=== PATIENT | female | born 1965 | race Caucasian/White ===

== ENCOUNTER 2016-10-16 10:15 | Observation (INO) | payer OTHER ==
[2016-10-16] VITALS (12 sets, daily range): BP systolic 116–156; BP diastolic 79–94; PULSE 71–93; RESP 16–20; TEMP 96.7–98.4; O2SAT 96–99
[~2016-10-16 10:15] MED LIST: IBUP-238 PO
[2016-10-16] MEDS ORDERED: ASPIRIN 325 MG TAB PO ONE (10:30)
[2016-10-16] MEDS ORDERED: SODIUM CHLORID 0.9% 500 ML INJ 500 ML IV ONE (10:30)
[2016-10-16] MEDS ORDERED: SODIUM CHLORIDE 0.9% FLUSH 10 ML FLUSH IVF PRN (10:30)
[2016-10-16] MEDS ORDERED: LEVO100T5 PO (10:32)
[2016-10-16] MEDS ORDERED: ROSU20 PO (10:32)
--- NOTE | 2016-10-16 10:33 | PD ---
HPI Chief Complaint: Dizziness Time Seen by Provider: 10:24 Travel History International Travel<30 days: No Contact w/Intl Traveler<30days: No Traveled to known affect area: No History of Present Illness HPI 51-year-old female with history of hypothyroidism, high cholesterol, presents to the ER today because she states that she has had several days' history of intermittent left-sided chest pains or radiation to the left shoulder, neck pains, nausea, and also woke up this morning with dizziness. She states that the chest pains and neck pains have subsided currently. She is mildly lightheaded currently. She denies any coughing, fevers, shortness of breath, or any other symptoms. She denies any exacerbating or alleviating factors. She has had similar chest pains evaluated about 4 years ago by cardiology with stress testing which was negative. Modifying Factors: None Associated Signs & Symptoms: Chest pains, neck pains, nausea, dizziness Risk Factors: High cholesterol PFSH Past Medical History Heart Rhythm Problems: No Cancer: No Cardiovascular Problems: Yes (MURMUR) High Cholesterol: Yes Congestive Heart Failure: No Diabetes: No Diminished Hearing: No Endocrine: No Genitourinary: No Hepatitis: No Hiatal Hernia: No Hypertension: No Immune Disorder: No Musculoskeletal: Yes (NECK PAIN/ BACK ISSUES) Neurologic: No Psychiatric: Yes (ANXIETY) Reproductive: No Respiratory: No Immunizations Current: No Thyroid Disease: Yes (HYPOTHYROID) Influenza Vaccination: Yes ?: Not Tubal Ligation: Yes Past Surgical History AICD: No Coronary Artery Bypass Graft: No Genitourinary Surgery: Yes (BLADDER SUSP.) Hysterectomy: Yes (PARTIAL) Joint Replacement: No Oral Surgery: Yes (TMJ SURG) Pacemaker: No Other Surgery: Yes (SKIN CANCER REMOVED FROM LEFT HAND) Social History Alcohol Use: No Tobacco Use: No Substance Use: No Allergies-Medications (Allergen,Severity, Reaction): Coded Allergies: Phenergan (Unverified Allergy, Severe, CARDIAC ARREST, 10/16/16) WITH IV PHENERGAN ONLY Reported Meds & Prescriptions Reported Meds & Active Scripts Active Reported Levothyroxine (Levothyroxine Sodium) 100 Mcg Tab 100 Mcg PO DAILY Crestor (Rosuvastatin Calcium) 20 Mg Tab 20 Mg PO DAILY Review of Systems Except as stated in HPI: all other systems reviewed are Neg Physical Exam Narrative GENERAL: Middle age white female patient currently not in acute distress. She is awake, alert, oriented 3. SKIN: Warm and dry. HEAD: Atraumatic. Normocephalic. EYES: Pupils equal and round. No scleral icterus. No injection or drainage. ENT: No nasal bleeding or discharge. Mucous membranes pink and moist. NECK: Trachea midline. No JVD. CARDIOVASCULAR: Regular rate and rhythm. No murmur appreciated. Pulses are present and equal bilaterally. RESPIRATORY: No accessory muscle use. Clear to auscultation. Breath sounds equal bilaterally. GASTROINTESTINAL: Abdomen soft, non-tender, nondistended. Hepatic and splenic margins not palpable. MUSCULOSKELETAL: No obvious deformities. No clubbing. No cyanosis. No edema. NEUROLOGICAL: Awake and alert. No obvious cranial nerve deficits. Motor grossly within normal limits. Normal speech. PSYCHIATRIC: Appropriate mood and affect; insight and judgment normal. Data Data Last Documented VS Vital Signs Date Time Temp Pulse Resp B/P Pulse Ox O2 Delivery O2 Flow Rate FiO2 10/16/16 12:27 80 18 151/84 98 Room Air 10/16/16 10:25 98.4 Orders Electrocardiogram (10/16/16 10:28) Ckmb (Isoenzyme) Profile (10/16/16 10:28) Complete Blood Count With Diff (10/16/16 10:28) Comprehensive Metabolic Panel (10/16/16 10:28) Magnesium (Mg) (10/16/16 10:28) Prothrombin Time / Inr (Pt) (10/16/16 10:28) Act Partial Throm Time (Ptt) (10/16/16 10:28) Troponin I (10/16/16 10:28) Chest, Single Ap (10/16/16 10:28) Ecg Monitoring (10/16/16 10:28) Bilateral Bp Monitoring (10/16/16 10:28) Iv Access Insert/Monitor (10/16/16 10:28) Oximetry (10/16/16 10:28) Oxygen Administration (10/16/16 10:28) Aspirin (Aspirin) (10/16/16 10:30) Sodium Chloride 0.9% Flush (Ns Flush) (10/16/16 10:30) Sodium Chlorid 0.9% 500 Ml Inj (Ns 500 M (10/16/16 10:30) Thyroid Stimulating Hormone (10/16/16 10:28) Labs Laboratory Tests Test 10/16/16 10/16/16 10:35 11:40 White Blood Count 7.2 TH/MM3 Red Blood Count 4.86 MIL/MM3 Hemoglobin 14.1 GM/DL Hematocrit 41.0 % Mean Corpuscular Volume 84.5 FL Mean Corpuscular Hemoglobin 29.0 PG Mean Corpuscular Hemoglobin 34.4 % Concent Red Cell Distribution Width 12.6 % Platelet Count 314 TH/MM3 Mean Platelet Volume 7.5 FL Neutrophils (%) (Auto) 65.6 % Lymphocytes (%) (Auto) 25.3 % Monocytes (%) (Auto) 5.0 % Eosinophils (%) (Auto) 2.2 % Basophils (%) (Auto) 1.9 % Neutrophils # (Auto) 4.7 TH/MM3 Lymphocytes # (Auto) 1.8 TH/MM3 Monocytes # (Auto) 0.4 TH/MM3 Eosinophils # (Auto) 0.2 TH/MM3 Basophils # (Auto) 0.1 TH/MM3 CBC Comment DIFF FINAL Differential Comment Prothrombin Time 10.2 SEC Prothromb Time International 0.9 RATIO Ratio Activated Partial 22.7 SEC Thromboplast Time Sodium Level 139 MEQ/L Potassium Level 4.5 MEQ/L Chloride Level 106 MEQ/L Carbon Dioxide Level 24.4 MEQ/L Anion Gap 9 MEQ/L Blood Urea Nitrogen 15 MG/DL Creatinine 0.66 MG/DL Estimat Glomerular Filtration 95 ML/MIN Rate Random Glucose 88 MG/DL Calcium Level 9.0 MG/DL Magnesium Level 2.1 MG/DL Total Bilirubin 0.3 MG/DL Aspartate Amino Transf 19 U/L (AST/SGOT) Alanine Aminotransferase 20 U/L (ALT/SGPT) Alkaline Phosphatase 65 U/L Total Creatine Kinase 77 U/L Troponin I LESS THAN 0.02 NG/ML Total Protein 8.2 GM/DL Albumin 3.7 GM/DL Thyroid Stimulating Hormone 7.350 uIU/ML 3rd Gen [facility] Medical Decision Making Medical Screen Exam Complete: Yes Emergency Medical Condition: Yes Medical Record Reviewed: Yes Interpretation(s) EKG shows NSR, no ST elevation or depression, and no arrhythmias. No significant T-wave inversions. Laboratory Tests Test 10/16/16 10/16/16 10:35 11:40 Activated Partial 22.7 SEC Thromboplast Time (24.3-30.1) Troponin I LESS THAN 0.02 NG/ML (0.02-0.05) Thyroid Stimulating Hormone 7.350 uIU/ML 3rd Gen (0.358-3.740) Last 24 hours Impressions Chest X-Ray 10/16/16 1028 Signed Impressions: Service Date/Time: Tuesday, October 16, 2016 10:40 - CONCLUSION: No acute disease. Akila Ramey MD Differential Diagnosis Chest pains, dizziness, neck pains, nauseaACS versus dysrhythmias versus muscular skeletal Narrative Course EKG did not show significant dysrhythmias or significant ST elevations or depressions. Chest x-ray did not show any signs of acute processes. Lab work was negative for any significant metabolic issues or signs of dehydration or cardiac enzyme elevations. Patient had a negative stress test done 5 years ago. Case was discussed with Dr. Arciniega who is covering for Dr. Staley, who had done patient's stress test before, and he states that the patient should go to the chest pain center. Case is discussed with Dr. Selvin Marrero for admission. Diagnosis Primary Impression: CHEST PAIN, UNSPECIFIED Admitting Information Admitting Physician Requests: Admit Willis Chan MD Oct 16, 2016 10:33
--- NOTE | 2016-10-16 10:52 | RADHPO ---
EXAM DATE/TIME: 10/16/2016 10:40 [facility] COMPARISON: No previous studies available for comparison. INDICATIONS : Chest pain and dizziness. MEDICAL HISTORY : None. SURGICAL HISTORY : None. ENCOUNTER: Initial ACUITY: 2 days PAIN SCORE: 3/10 LOCATION: Bilateral chest FINDINGS: A single view of the chest demonstrates the lungs to be symmetrically aerated without evidence of mas s, infiltrate or effusion. The cardiomediastinal contours are unremarkable. Osseous structures are intact. Anterior cervical spine fusion hardware noted. CONCLUSION: No acute disease. Akila Ramey MD on October 16, 2016 at 10:50 Board Certified Radiologist. This report was verified electronically.
[2016-10-16 10:53] LABS: AUTOMATED NEUTROPHIL # 4.7 TH/MM3 (1.8-7.7); BASOPHIL # 0.1 TH/MM3 (0-0.2); BASOPHIL % 1.9 % (0.0-2.0); EOSINOPHIL # 0.2 TH/MM3 (0-0.4); EOSINOPHIL % 2.2 % (0.0-4.0); HEMO FLAGS DIFF FINAL; LYMPH % 25.3 % (9.0-44.0); LYMPHOCYTE # 1.8 TH/MM3 (1.0-4.8); MEAN CELL VOLUME 84.5 FL (80.0-100.0); MEAN CORPUSCULAR HGB CONC 34.4 % (32.0-36.0); NEUT % 65.6 % (16.0-70.0); PLATELET COUNT 314 TH/MM3 (150-450); RED BLOOD COUNT 4.86 MIL/MM3 (4.00-5.30); RED CELL DISTRIBUTION WIDTH 12.6 % (11.6-17.2); WHITE BLOOD COUNT 7.2 TH/MM3 (4.0-11.0)
[2016-10-16 10:55] LABS: APTT (PATIENT) 22.7 SEC (24.3-30.1); INTERNATIONAL NORMALIZED RATIO 0.9 RATIO; PROTHROMBIN TIME - PATIENT 10.2 SEC (9.8-11.6)
[2016-10-16 11:58] LABS: CHLORIDE 106 MEQ/L (98-107); POTASSIUM 4.5 MEQ/L (3.5-5.1); SODIUM (NA) 139 MEQ/L (136-145)
[2016-10-16 12:02] LABS: ANION GAP 9 MEQ/L (5-15); BICARBONATE 24.4 MEQ/L (21.0-32.0); BLOOD UREA NITROGEN 15 MG/DL (7-18); MAGNESIUM 2.1 MG/DL (1.5-2.5)
[2016-10-16 12:05] LABS: ALT (GPT) 20 U/L (10-53); AST (GOT) 19 U/L (15-37); GLOMERULAR FILTRATION RATE 95 ML/MIN (>89)
[2016-10-16 12:06] LABS: TOTAL BILIRUBIN ADULT 0.3 MG/DL (0.2-1.0)
[2016-10-16 12:08] LABS: ALKALINE PHOSPHATASE 65 U/L (45-117)
[2016-10-16 12:21] LABS: CREATINE KINASE 77 U/L (26-192)
[2016-10-16] MEDS ORDERED: ONDANSETRON HCL 4 MG/2 ML VIAL IV PRN (13:00)
[2016-10-16] MEDS ORDERED: NITROGLYCERIN 0.4 MG SL 25 TABS/BTL SL PRN (13:00)
[2016-10-16] MEDS ORDERED: MORPHINE SULFATE 4 MG/ML INJ IV PRN (13:00)
[2016-10-16] MEDS ORDERED: SODIUM CHLORIDE 0.9% FLUSH 10 ML FLUSH IV FLUSH PRN (13:00)
[2016-10-16] MEDS: HEPARIN SODIUM - SQ 10,000 UNITS/ML VIAL SQ SCH ×2 (13:27→20:59)
--- NOTE | 2016-10-16 14:07 | HHI.HP ---
HPI Service [facility] Primary Care Physician Tyree Serrano MD Admission Diagnosis chest pain Diagnoses: (1) Dizziness Diagnosis: Principal (2) Chest pain Diagnosis: Principal (3) HTN (hypertension) Diagnosis: Principal (4) Hypothyroidism Diagnosis: Principal Chief Complaint: "dizzy" Travel History International Travel<30 Days: No Contact w/Intl Traveler <30 Da: No Traveled to Known Affected Are: No History of Present Illness 51-year-old female with history of congenital heart murmur, hyperlipidemia, hypothyroidism, anxiety, and neck and back issues is admitted chest pain center. The patient states that she came in primarily for dizziness. She states she got up today and was "very very dizzy". She states it felt like the room was spinning and she was lightheaded and when she stood up she almost fell. She denies ever having this before. She states her blood pressure was also high with systolic in the 150s whereas normally she is hypotensive. She additionally states she has had chest pain over the left upper chest for the past 3 days. She states the pain lasts approximately 1 minute but also has radiation to the left upper arm and radiates to the back. She states it would hurt when she breathes. She states she has had chest pain once per week for the past 8 or 9 months. Denies anything making the pain better. She denies any diaphoresis, shortness of breath, or vomiting with the chest pain but does admit to feeling nauseous with it. The patient has not been compliant with her Synthroid. She had a treadmill stress test in 2011 which was negative for ischemia.She currently admits to headache, but denies receiving nitroglycerin in the ED. She denies any fevers or chills, cold or cough symptoms. Review of Systems Except as stated in HPI: all other systems reviewed are Neg Past Family Social History Past Medical History Congenital heart murmur Hyperlipidemia Hypothyroidism Anxiety Neck and back issues chronic globus sensation Cardiac arrest from Phenergan use Episode of severe hypoglycemia when hospitalized for procedure Past Surgical History Tubal ligation Bladder suspension 2 Partial hysterectomy TMJ surgery Skin cancer removed from left hand Disc surgery cervical spine Esophageal dilatation Reported Medications Levothyroxine (Levothyroxine Sodium) 100 Mcg Tab 100 Mcg PO DAILY Crestor (Rosuvastatin Calcium) 20 Mg Tab 20 Mg PO DAILY Allergies: Coded Allergies: Phenergan (Unverified Allergy, Severe, CARDIAC ARREST, 10/16/16) WITH IV PHENERGAN ONLY Family History Mother: NE in her 50s; hyperlipidemia. Father: Hyperlipidemia. Brother: Diabetes. Thyroid disease runs in the family. Social History Denies history of cigarette smoking. Denies alcohol use. Denies illicit drug use. Physical Exam Vital Signs Vital Signs Date Time Temp Pulse Resp B/P Pulse Ox O2 Delivery O2 Flow Rate FiO2 10/16/16 13:59 96.7 71 16 132/84 99 10/16/16 13:36 76 18 151/84 98 10/16/16 12:27 80 18 151/84 98 Room Air 10/16/16 11:23 75 18 139/91 97 Room Air 10/16/16 11:07 83 152/89 149/84 10/16/16 10:38 97 Room Air 10/16/16 10:38 98 Room Air 10/16/16 10:25 98.4 84 18 156/94 99 Physical Exam GENERAL: This is a pleasant well-nourished, well-developed patient, in no apparent distress. SKIN: No rashes, ecchymoses or lesions. Warm and dry. HEAD: Atraumatic. Normocephalic. EYES: No scleral icterus. No injection or drainage. NECK: Trachea midline. No carotid bruits bilaterally. CHEST: No reproducible chest wall tenderness. CARDIOVASCULAR: Regular rate and rhythm without murmurs, gallops, or rubs. RESPIRATORY: Clear to auscultation. Breath sounds equal bilaterally. No wheezes , rales, or rhonchi. GASTROINTESTINAL: Abdomen soft, non-tender, nondistended. No guarding. MUSCULOSKELETAL: No lower extremity edema. NEUROLOGICAL: Awake and alert. Motor grossly within normal limits. Normal speech. Laboratory Laboratory Tests Test 10/16/16 10/16/16 10:35 11:40 White Blood Count 7.2 Red Blood Count 4.86 Hemoglobin 14.1 Hematocrit 41.0 Mean Corpuscular Volume 84.5 Mean Corpuscular Hemoglobin 29.0 Mean Corpuscular Hemoglobin 34.4 Concent Red Cell Distribution Width 12.6 Platelet Count 314 Mean Platelet Volume 7.5 Neutrophils (%) (Auto) 65.6 Lymphocytes (%) (Auto) 25.3 Monocytes (%) (Auto) 5.0 Eosinophils (%) (Auto) 2.2 Basophils (%) (Auto) 1.9 Neutrophils # (Auto) 4.7 Lymphocytes # (Auto) 1.8 Monocytes # (Auto) 0.4 Eosinophils # (Auto) 0.2 Basophils # (Auto) 0.1 CBC Comment DIFF FINAL Differential Comment Prothrombin Time 10.2 Prothromb Time International 0.9 Ratio Activated Partial 22.7 Thromboplast Time Sodium Level 139 Potassium Level 4.5 Chloride Level 106 Carbon Dioxide Level 24.4 Anion Gap 9 Blood Urea Nitrogen 15 Creatinine 0.66 Estimat Glomerular Filtration 95 Rate Random Glucose 88 Calcium Level 9.0 Magnesium Level 2.1 Total Bilirubin 0.3 Aspartate Amino Transf 19 (AST/SGOT) Alanine Aminotransferase 20 (ALT/SGPT) Alkaline Phosphatase 65 Total Creatine Kinase 77 Troponin I LESS THAN 0.02 Total Protein 8.2 Albumin 3.7 Thyroid Stimulating Hormone 7.350 3rd Gen Result Diagram: 10/16/16 1035 10/16/16 1140 Imaging Last Impressions Chest X-Ray 10/16/16 1028 Signed Impressions: Service Date/Time: Sunday, October 16, 2016 10:40 - CONCLUSION: No acute disease. Akila Ramey MD Assessment and Plan Assessment and Plan 51-year-old female with: Dizziness: Acute started this morning, room spinning with associated lightheadedness. Likely attributed to not taking her Synthroid as evidenced by TSH elevation. Patient appears well on exam. No hypotension evident. CBC unremarkable. -Monitor clinically. If recurs will consider CT imaging of the head. -Currently has a LOVE, appears mild, Tylenol as needed. Chest pain: Left upper chest reading to the arm and back. Started 8-9 months ago. Troponin less than 0.02. EKGs 2 personally interpreted with normal sinus rhythm and nonspecific septal T wave inversion. Chest x-ray personally interpreted with no acute disease. -Serial EKGs and enzymes -325 mg daily aspirin -Nitro/[place]/morphine prn pain -Telemetry -Provided ACS ruled out, patient will undergo nuclear stress test in the morning. Hypertension: Patient does not have a history of hypertension stating she is normally hypotensive. BP on arrival was 156/94 persistent until this afternoon , improved to 132/84. -Clonidine as needed SBP >160 DBP > 90 Hypothyroidism: TSH elevated at 7.350. Patient has not been compliant with taking her Synthroid regularly. -Continue Synthroid. HLD: Continue Crestor. DVT prevention: SCDs, heparin sq. Written by Qian Velez PA-C acting as scribe for Dr. Magana on 10/16/16 at ~1400. All or portions of this note were transcribed by scribe Qian Velez PA-C. I , Dr. Xavier Magana personally performed the history, physical exam, and medical decision making; and confirmed the accuracy of the information in the transcribed note. Authenticated by Dr. Xavier Magana on 10/16/16 at 15:59. Discussed Condition With ED physician, patient Qian Velez Oct 16, 2016 14:07 Xavier Magana MD Oct 16, 2016 15:59
[2016-10-16] MEDS ORDERED: cloNIDine HCL 0.1 MG TAB PO PRN (15:45)
[2016-10-16 15:46] LABS: CREATINE KINASE 47 U/L (26-192)
[2016-10-16 19:52] LABS: CREATINE KINASE 48 U/L (26-192)
[2016-10-16] MEDS: ACETAMINOPHEN 500 MG CPLT PO PRN (20:58)
[2016-10-16] MEDS: SODIUM CHLORIDE 0.9% FLUSH 10 ML FLUSH IV FLUSH SCH (20:59)
[2016-10-16] MEDS ORDERED: NON-FORMULARY DRUG (Rosuvastatin (Crestor) 20 MG) PO SCH (21:00)
[2016-10-16] MEDS ORDERED: ATORVASTATIN 40 MG TAB PO SCH (21:00)
[2016-10-17 00:49] VITALS: BP 110/69; PULSE 72; RESP 20; TEMP 97.9; O2SAT 98
[2016-10-17] MEDS: HEPARIN SODIUM - SQ 10,000 UNITS/ML VIAL SQ SCH ×2 (05:00→11:19)
[2016-10-17 05:08] VITALS: BP 113/76; PULSE 72; RESP 14; TEMP 96.3; O2SAT 96
[2016-10-17] MEDS ORDERED: LEVOTHYROXINE SODIUM 100 MCG TAB PO SCH (06:00)
[2016-10-17 08:00] VITALS: BP 140/92; PULSE 81; RESP 20; TEMP 96.2; O2SAT 96; O2SAT 97
[2016-10-17] MEDS: SODIUM CHLORIDE 0.9% FLUSH 10 ML FLUSH IV FLUSH SCH (08:42)
[2016-10-17] MEDS ORDERED: ASPIRIN 325 MG TAB PO SCH (09:00)
[2016-10-17] MEDS ORDERED: PANTOPRAZOLE SOD 40 MG DELAYED RELEASE TAB PO SCH (09:00)
[2016-10-17] MEDS ORDERED: REGADENOSON INJ 0.4 MG/5 ML SYR IV ONE (10:34)
--- NOTE | 2016-10-17 11:48 | HHI.PR ---
Subjective Remarks Follow-up for dizziness and chest pain. She states she had dizziness when coming off of the table after the stress test but denies dizziness otherwise. She admits to headache after the stress test. She does states she had 1 episode of sharp pain in the chest earlier which lasted only 30 seconds. She denies any current chest pain. Denies any shortness of breath. Objective Vitals Vital Signs Date Time Temp Pulse Resp B/P Pulse Ox O2 Delivery O2 Flow Rate FiO2 10/17/16 08:00 96.2 81 20 140/92 97 10/17/16 05:08 96.3 72 14 113/76 96 10/17/16 00:49 97.9 72 20 110/69 98 10/16/16 22:13 18 10/16/16 21:16 97 21 10/16/16 20:34 97.3 76 20 116/79 97 10/16/16 20:00 93 10/16/16 17:18 96 21 10/16/16 16:00 97.3 88 16 122/85 96 10/16/16 13:59 96.7 71 16 132/84 99 10/16/16 13:36 76 18 151/84 98 10/16/16 12:27 80 18 151/84 98 Room Air I/O 10/16/16 10/16/16 10/16/16 10/17/16 10/17/16 10/17/16 07:00 15:00 23:00 07:00 15:00 23:00 Intake Total 500 ml 480 ml Balance 500 ml 480 ml Intake Oral 480 ml IV Total 500 ml # Voids 1 3 2 Result Diagram: 10/16/16 1035 10/16/16 1140 Imaging Last Impressions Myocardial Perfusion Scan Nuc Med 10/17/16 0600 Signed Impressions: Service Date/Time: Monday, October 17, 2016 10:45 - CONCLUSION: Negative exam. RISK CATEGORY: Low risk. Akila Ramey MD Chest X-Ray 10/16/16 1028 Signed Impressions: Service Date/Time: Sunday, October 16, 2016 10:40 - CONCLUSION: No acute disease. Akila Ramey MD Objective Remarks GENERAL: Well-nourished, well-developed patient in no apparent distress. SKIN: Warm and dry. HEAD: Atraumatic. Normocephalic. CARDIOVASCULAR: Regular rate and rhythm. RESPIRATORY: No accessory muscle use. Clear to auscultation. Breath sounds equal bilaterally. GASTROINTESTINAL: Abdomen soft, non-tender, nondistended. MUSCULOSKELETAL: No lower extremity edema bilaterally. NEUROLOGICAL: Awake and alert. Motor grossly within normal limits. Normal speech. PSYCHIATRIC: Appropriate mood and affect; insight and judgment normal. Urinary Catheter: No Vascular Central Line Catheter: No A/P Problem List: (1) Dizziness ICD Code: R42 Status: Acute (2) Chest pain ICD Code: R07.9 Status: Acute (3) HTN (hypertension) ICD Code: I10 Status: Acute (4) Hypothyroidism ICD Code: E03.9 Status: Acute Assessment and Plan 51-year-old female with: Dizziness:Spinning with associated lightheadedness. Likely attributed to not taking her Synthroid as evidenced by TSH elevation. Patient appears well on exam. No hypotension evident. CBC unremarkable. -Only recurrence was dizziness when getting off of table after stress test. Chest pain: Left upper chest radiating to the arm and back. Started 8-9 months ago. Troponin x 3 less than 0.02. EKGs 3 personally interpreted with normal sinus rhythm; EKG #1 and 2 with nonspecific septal T wave inversion. Chest x- with no acute disease. -325 mg daily aspirin -Nitro/morphine prn pain -Telemetry -Nuclear stress test to be performed. Hypertension: Patient does not have a history of hypertension stating she is normally hypotensive. BP on arrival was 156/94 but improved yesterday afternoon without intervention. BP became elevated at 160/106 this afternoon likely due to Lexiscan. Clonidine was administered. -Clonidine as needed SBP >160 DBP > 90 Hypothyroidism: TSH elevated at 7.350. Patient has not been compliant with taking her Synthroid regularly. -Continue Synthroid. HLD: Continue Crestor. DVT prevention: SCDs, heparin sq. Written by Qian Velez PA-C acting as scribe for Dr. Magana on 10/17/16 at 1150. Myocardial perfusion scan negative. EF 68%. Telemetry reviewed with no significant abnormalities noted. Patient's blood pressure elevated again this afternoon likely due to the Lexiscan, but she also came in with hypertension and it was mildly elevated in the morning prior to test. She states that is the reason she came to the hospital. The patient will be started on Lisinopril 5 mg by mouth daily. She is advised to keep a log of blood pressures/symptoms and report to her primary care physician. Discharge disposition: Home in stable condition Diet: Heart healthy Medications: Resume home medications. Prescription for Lisinopril 5 mg by mouth daily. Activity: Regular. No driving for 24 hours. Follow up: PCP in 1 week. Qian Velez Oct 17, 2016 11:48
[2016-10-17 12:00] VITALS: BP 160/106; PULSE 86; RESP 20; TEMP 97.7; O2SAT 96
[2016-10-17] MEDS: ACETAMINOPHEN 500 MG CPLT PO PRN (13:23)
--- NOTE | 2016-10-17 13:38 | TR ---
Date Performed: 10/17/2016 Time Performed: 10:46:48 DOCTOR: Ash Segundo DRUG LIST: CLINICAL HISTORY: CHEST PAIN REASON FOR TEST: Chest pain REASON FOR ENDING: OBSERVATION: CONCLUSION: Lexiscan stress test was performed under standard four minute protocol. Radionuclid e was injected one minute prior to ending the test. No electrocardiographic abormalities were present to suggest ischemia. Nuclear imaging and interpretation are pending. COMMENTS:
--- NOTE | 2016-10-17 14:10 | RADHPO ---
EXAM DATE/TIME: 10/17/2016 10:45 [facility] COMPARISON: No previous studies available for comparison. INDICATIONS : Substernal chest pain with dizziness and nausea radiating to left arm and back. Abnormal EKG. DOSE: 25.4 mCi Tc99m Myoview at stress. 8.4 mCi Tc99m Myoview at rest. 0.4 mg Lexiscan STRESS SYMPTOMS: Dyspnea, diaphoresis, headache and nausea. EJECTION FRACTION: 68% MEDICAL HISTORY : Hypertension. Hypothyroidism. SURGICAL HISTORY : Tubal ligation. Hysterectomy. Esophageal dilation. ENCOUNTER: Initial ACUITY: 3 days PAIN SCALE: 5/10 LOCATION: Substernal chest TECHNIQUE: The patient underwent pharmacologic stress with infusion of prescribed dose. Continuous ECG tracing was monitored during stress. Gated SPECT imaging was performed after stress and conventional SPECT i maging was performed at rest. The examination was performed on a SPECT/CT scanner, both attenuation and non-corrected datasets were reviewed. FINDINGS: DISTRIBUTION: The maximum perfused segment at stress is in the septal wall. PERFUSION STUDY: The pattern of perfusion at stress is within normal limits. GATED STUDY: There is intact wall motion and thickening without hypokinetic or dyskinetic segments. CONCLUSION: Negative exam. RISK CATEGORY: Low risk. Akila Ramey MD on October 17, 2016 at 14:07 Board Certified Radiologist. This report was verified electronically.
[2016-10-17] MEDS ORDERED: LISI-519 PO (14:39)
--- NOTE | 2016-10-17 14:40 | HHI.DCPOC ---
Discharge Care Plan Diagnosis: (1) Chest pain (2) HTN (hypertension) (3) Dizziness Your Health Problems Are: Chest Pain Goals to Promote Your Health * To prevent worsening of your condition and complications * To maintain your health at the optimal level Directions to Meet Your Goals Take your medications as prescribed Follow your dietary instruction Follow activity as directed Keep your appointments as scheduled Take your immunizations and boosters as scheduled If your symptoms worsen call your PCP, if no PCP go to Urgent Care Center or Emergency Room Smoking is Dangerous to Your Health. Avoid second hand smoke Call the 24-hour hour crisis hotline for domestic abuse at Qian Velez Oct 17, 2016 14:40
--- NOTE | 2016-10-17 14:56 | EKG ---
Date Performed: 10/16/2016 Time Performed: 14:56:32 PTAGE: 51 years EKG: Sinus rhythm Abnormal R wave progression Compared to previous tracing, which is likely due to lead placement Abno rmal ECG PREVIOUS TRACING : 10/16/2016 10.19 DOCTOR: Angel Arciniega Interpretating Date/Time 10/17/2016 14:56:21
--- NOTE | 2016-10-17 15:14 | EKG ---
Date Performed: 10/16/2016 Time Performed: 18:54:36 PTAGE: 51 years EKG: Sinus rhythm Anterior T wave changes are nonspecific Low QRS voltages in precordial leads Since previous tracing, no significant change noted Borderline ECG PREVIOUS TRACING : 10/16/2016 14.56 DOCTOR: Angel Arciniega Interpretating Date/Time 10/17/2016 15:12:48
--- NOTE | 2016-10-17 15:14 | EKG ---
Date Performed: 10/16/2016 Time Performed: 10:19:40 PTAGE: 51 years EKG: Sinus rhythm . Low QRS voltages in precordial leads Since previous tracing, no significant change noted Borderline ECG PREVIOUS TRACING : 09/26/2013 10.44 DOCTOR: Angel Arciniega Interpretating Date/Time 10/17/2016 15:12:20
== END 2016-10-17 15:04 | disposition home or self-care (01) ==
LOC: PHED 10:15 → PHEDA 12:49 → PH3A 13:43
PROVIDERS: ADMIT Family Medicine; ATTEND Family Medicine
DX: R42 Dizziness and giddiness (principal); R07.9 Chest pain, unspecified; I10 Essential (primary) hypertension; E03.9 Hypothyroidism, unspecified; E78.5 Hyperlipidemia, unspecified; F41.9 Anxiety disorder, unspecified; E78.00 Pure hypercholesterolemia, unspecified; Z85.828 Personal history of other malignant neoplasm of skin; Z88.8 Allergy status to other drugs, medicaments and biological substances
CPT/HCPCS: 71010; 78452; 80053; 82550; 83735; 84443; 84484; 85025; 85610; 85730; 93005; 93017; 96360; 96361; 99285; A9502; G0378; J1644; J2785; J7040

== ENCOUNTER 2017-10-22 12:41 | Emergency (ER) | payer OTHER ==
[~2017-10-22] VITALS: Ht 157.5 cm; Wt 88.2 kg
[~2017-10-22 12:41] MED LIST changes: -IBUP-238 PO; +LEVO100T5 PO; +LISI-519 PO; +ROSU20 PO
[2017-10-22 12:53] VITALS: BP 155/90; PULSE 83; RESP 16; TEMP 98; O2SAT 100
[2017-10-22] MEDS ORDERED: KETOROLAC TROMETHAMINE 60 MG/2 ML (IM) VIAL IM ONE (14:00)
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
[2017-10-22] MEDS ORDERED: IBUP-232 PO (14:47)
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
== END 2017-10-22 15:12 | disposition home or self-care (01) ==
LOC: PHEFT 12:41
DX: M54.2 Cervicalgia (principal); M50.322 Other cervical disc degeneration at C5-C6 level; R01.1 Cardiac murmur, unspecified; E78.00 Pure hypercholesterolemia, unspecified; F41.9 Anxiety disorder, unspecified; E03.9 Hypothyroidism, unspecified; Z79.899 Other long term (current) drug therapy; Z88.8 Allergy status to other drugs, medicaments and biological substances
CPT/HCPCS: 71045; 72125; 96372; 99284; J1885

== ENCOUNTER 2017-11-24 19:34 | Observation (INO) | payer OTHER ==
[~2017-11-24] VITALS: Ht 157.5 cm; Wt 82.8 kg
[~2017-11-24 19:34] MED LIST changes: +IBUP-232 PO
[2017-11-24 19:57] VITALS: BP 122/76; PULSE 98; RESP 16; TEMP 98.9; O2SAT 95
[2017-11-24] MEDS ORDERED: HYDR1SOL3 PO (20:07)
--- NOTE | 2017-11-24 20:22 | PD ---
HPI Chief Complaint: GI Complaint Time Seen by Provider: 20:14 Travel History International Travel<30 days: No Contact w/Intl Traveler<30days: No Traveled to known affect area: No History of Present Illness HPI 52-year-old female who on 11/09/17 had gastric sleeve procedure as well as hiatal hernia repair by Dr. Bernardo in [place], here for evaluation of inability to tolerate PO. The patient states that for the last 3 days every time she tries to drink or eat a pure diet she feels as though it is stuck in her mid chest and then comes back up. She reports that her wounds from the laparoscopic procedure are healing well and she has mild intermittent abdominal discomfort. Last bowel movement was 2 days ago. No fevers. PFSH Past Medical History Heart Rhythm Problems: No Cancer: No Cardiovascular Problems: Yes (MURMUR) High Cholesterol: Yes Congestive Heart Failure: No Diabetes: No Diminished Hearing: No Endocrine: No Genitourinary: No Hepatitis: No Hiatal Hernia: No Hypertension: No Immune Disorder: No Musculoskeletal: Yes (NECK PAIN/ BACK ISSUES) Neurologic: No Psychiatric: Yes (ANXIETY) Reproductive: No Respiratory: No Immunizations Current: No Thyroid Disease: Yes (HYPOTHYROID) ?: Not Tubal Ligation: Yes Past Surgical History AICD: No Coronary Artery Bypass Graft: No Genitourinary Surgery: Yes (BLADDER mesh x2 SUSP./ partial hysterectomy ) Hysterectomy: Yes (PARTIAL) Joint Replacement: No Neurologic Surgery: Yes (DISC REMOVED FROM NECK) Oral Surgery: Yes (TMJ SURG) Pacemaker: No Tonsillectomy: Yes Other Surgery: Yes (SKIN CANCER REMOVED FROM LEFT HAND) Social History Alcohol Use: Yes (RARE) Tobacco Use: No Substance Use: No Allergies-Medications (Allergen,Severity, Reaction): Coded Allergies: promethazine (Unverified Allergy, Severe, CARDIAC ARREST, 11/24/17) WITH IV PHENERGAN ONLY Reported Meds & Prescriptions Reported Meds & Active Scripts Active Ibuprofen 600 Mg Tab 600 Mg PO Q8HR PRN Reported Hydrocodone-Acetaminophen Liq 7.5-325 Mg/15 Ml Soln 10 Ml PO Q6H PRN Levothyroxine (Levothyroxine Sodium) 100 Mcg Tab 100 Mcg PO DAILY Crestor (Rosuvastatin Calcium) 20 Mg Tab 20 Mg PO DAILY Review of Systems Except as stated in HPI: all other systems reviewed are Neg Physical Exam Narrative GENERAL: Well-developed, well-nourished, comfortable, no apparent distress. SKIN: Focused skin assessment warm/dry. HEAD: Atraumatic. Normocephalic. EYES: Pupils equal and round. No scleral icterus. No injection or drainage. ENT: Mucous membranes pink and moist. Normal pharynx. No drooling or stridor. NECK: Trachea midline. No JVD. CARDIOVASCULAR: Regular rate and rhythm. RESPIRATORY: No accessory muscle use. Clear to auscultation. Breath sounds equal bilaterally. GASTROINTESTINAL: Abdomen soft, non-tender, nondistended. Well-healing laparoscopic surgical incisions without warmth erythema. MUSCULOSKELETAL: No obvious deformities. No clubbing. No cyanosis. No edema. NEUROLOGICAL: Awake and alert. No obvious cranial nerve deficits. Motor grossly within normal limits. Normal speech. PSYCHIATRIC: Appropriate mood and affect; insight and judgment normal. Data Data Last Documented VS Vital Signs Date Time Temp Pulse Resp B/P (MAP) Pulse Ox O2 Delivery O2 Flow Rate FiO2 11/24/17 19:57 98.9 98 16 122/76 (91) 95 Orders Orders Complete Blood Count With Diff (11/24/17 20:19) Comprehensive Metabolic Panel (11/24/17 20:19) Lipase (11/24/17 20:19) Prothrombin Time / Inr (Pt) (11/24/17 20:19) Act Partial Throm Time (Ptt) (11/24/17 20:19) Iv Access Insert/Monitor (11/24/17 20:19) Ecg Monitoring (11/24/17 20:19) Oximetry (11/24/17 20:19) Sodium Chloride 0.9% Flush (Ns Flush) (11/24/17 20:30) Gastrografin Swallow (11/24/17 ) Potassium Chlor 20 Meq Premix (Kcl 20 Me (11/24/17 21:30) Labs Laboratory Tests Test 11/24/17 20:30 White Blood Count 7.0 TH/MM3 Red Blood Count 4.81 MIL/MM3 Hemoglobin 13.3 GM/DL Hematocrit 40.6 % Mean Corpuscular Volume 84.3 FL Mean Corpuscular Hemoglobin 27.6 PG Mean Corpuscular Hemoglobin Concent 32.7 % Red Cell Distribution Width 12.4 % Platelet Count 328 TH/MM3 Mean Platelet Volume 7.1 FL Neutrophils (%) (Auto) 59.2 % Lymphocytes (%) (Auto) 29.6 % Monocytes (%) (Auto) 6.7 % Eosinophils (%) (Auto) 0.6 % Basophils (%) (Auto) 3.9 % Neutrophils # (Auto) 4.1 TH/MM3 Lymphocytes # (Auto) 2.1 TH/MM3 Monocytes # (Auto) 0.5 TH/MM3 Eosinophils # (Auto) 0.0 TH/MM3 Basophils # (Auto) 0.3 TH/MM3 CBC Comment DIFF FINAL Differential Comment Prothrombin Time 11.8 SEC Prothromb Time International Ratio 1.2 RATIO Activated Partial Thromboplast Time 27.1 SEC Blood Urea Nitrogen 11 MG/DL Creatinine 0.56 MG/DL Random Glucose 104 MG/DL Total Protein 8.3 GM/DL Albumin 3.8 GM/DL Calcium Level 9.6 MG/DL Alkaline Phosphatase 78 U/L Aspartate Amino Transf (AST/SGOT) 15 U/L Alanine Aminotransferase (ALT/SGPT) 27 U/L Total Bilirubin 0.3 MG/DL Sodium Level 139 MEQ/L Potassium Level 3.2 MEQ/L Chloride Level 106 MEQ/L Carbon Dioxide Level 26.6 MEQ/L Anion Gap 6 MEQ/L Estimat Glomerular Filtration Rate 114 ML/MIN Lipase 123 U/L MDM Medical Decision Making Medical Screen Exam Complete: Yes Emergency Medical Condition: Yes Differential Diagnosis Esophageal stricture, gastric outlet obstruction, dehydration/metabolic abnormality Narrative Course 8:40 PM: I discussed the case with the covering bariatric surgeon for Dr. Bernardo in [place]. He recommends Gastrografin swallow study, IV hydration, and likely GI intervention with endoscopy pending on swallow study results. There is no radiologist in house tonight to perform Gastrografin study, therefore the test would need to be done in the morning. 9:10 PM: I discussed the case with our on-call supervisor color making Dr. Darden who agrees that it is reasonable to keep the patient overnight to have a Gastrografin swallow study done in the morning, and to make a decision on treatment plan depending on the results of the study. Initial vital signs show heart rate 98, blood pressure 122/76, pulse ox 95% on room air, oral temperature 98.9F. CBC is essentially unremarkable. CMP is remarkable for potassium 3.2, otherwise unremarkable. Lipase is 123. The patient was made aware of all findings and is amenable to this plan. Potassium replaced parenterally. Case discussed with hospitalist Dr. Bautista who will admit the patient to the hospitalist service for overnight observation. Diagnosis Primary Impression: Dysphagia Qualified Codes: R13.10 - Dysphagia, unspecified Additional Impression: Hypokalemia Admitting Information Admitting Physician Requests: Observation Eulalio Mulligan MD November 24, 2017 20:22
[2017-11-24] MEDS ORDERED: SODIUM CHLORIDE 0.9% FLUSH 10 ML FLUSH IV FLUSH PRN ×2 (20:30→21:30)
[2017-11-24 20:38] LABS: AUTOMATED NEUTROPHIL # 4.1 TH/MM3 (1.8-7.7); BASOPHIL # 0.3 TH/MM3 (0-0.2); BASOPHIL % 3.9 % (0.0-2.0); EOSINOPHIL % 0.6 % (0.0-4.0); HEMATOCRIT 40.6 % (35.0-46.0); HEMOGLOBIN 13.3 GM/DL (11.6-15.3); LYMPH % 29.6 % (9.0-44.0); LYMPHOCYTE # 2.1 TH/MM3 (1.0-4.8); MEAN CELL VOLUME 84.3 FL (80.0-100.0); MEAN CORPUSCULAR HEMOGLOBIN 27.6 PG (27.0-34.0); MEAN CORPUSCULAR HGB CONC 32.7 % (32.0-36.0); MEAN PLATELET VOLUME 7.1 FL (7.0-11.0); MONO % 6.7 % (0.0-8.0); MONOCYTE # 0.5 TH/MM3 (0-0.9); NEUT % 59.2 % (16.0-70.0); PLATELET COUNT 328 TH/MM3 (150-450); RED BLOOD COUNT 4.81 MIL/MM3 (4.00-5.30); RED CELL DISTRIBUTION WIDTH 12.4 % (11.6-17.2)
[2017-11-24 20:49] LABS: CHLORIDE 106 MEQ/L (98-107); SODIUM (NA) 139 MEQ/L (136-145)
[2017-11-24 20:53] LABS: ALBUMIN 3.8 GM/DL (3.4-5.0); BICARBONATE 26.6 MEQ/L (21.0-32.0); BLOOD UREA NITROGEN 11 MG/DL (7-18); CALCIUM 9.6 MG/DL (8.5-10.1); GLUCOSE,RANDOM 104 MG/DL (74-106)
[2017-11-24 20:55] LABS: INTERNATIONAL NORMALIZED RATIO 1.2 RATIO; PROTHROMBIN TIME - PATIENT 11.8 SEC (9.8-11.6)
[2017-11-24 20:56] LABS: ALT (GPT) 27 U/L (10-53); AST (GOT) 15 U/L (15-37); CREATININE 0.56 MG/DL (0.50-1.00); GLOMERULAR FILTRATION RATE 114 ML/MIN (>89)
[2017-11-24 20:58] LABS: TOTAL BILIRUBIN ADULT 0.3 MG/DL (0.2-1.0); TOTAL PROTEIN 8.3 GM/DL (6.4-8.2)
[2017-11-24 20:59] LABS: ALKALINE PHOSPHATASE 78 U/L (45-117)
[2017-11-24] MEDS ORDERED: ONDANSETRON HCL 4 MG/2 ML VIAL IVP PRN (21:30)
[2017-11-24] MEDS ORDERED: BISACODYL 10 MG SUPP RECTAL PRN (21:30)
[2017-11-24] MEDS ORDERED: NALOXONE HCL 0.4 MG/ML AMP IV PUSH PRN (21:30)
[2017-11-24] MEDS ORDERED: SENNOSIDES 8.6 MG TAB PO PRN (21:30)
[2017-11-24] MEDS ORDERED: LACTULOSE SYRUP 20 GM/30 ML CUP PO PRN (21:30)
[2017-11-24] MEDS ORDERED: MAGNESIUM HYDROXIDE SUSP 30 ML CUP PO PRN (21:30)
[2017-11-24] MEDS: POTASSIUM CHLOR 20 MEQ PREMIX 100 ML IV SCH ×2 (21:37→23:30)
[2017-11-24] MEDS: SODIUM CHLOR 0.9% 1000 ML INJ 1,000 ML IV SCH (21:53)
[2017-11-24 23:00] VITALS: BP 125/85; PULSE 78; RESP 16; O2SAT 98
[2017-11-25] VITALS: BP 138/75; PULSE 76; RESP 20; TEMP 98.6; O2SAT 96
[2017-11-25 04:00] VITALS: BP 109/68; PULSE 69; RESP 20; TEMP 98.7; O2SAT 96
[2017-11-25] MEDS: SODIUM CHLOR 0.9% 1000 ML INJ 1,000 ML IV SCH ×2 (06:36→08:33)
[2017-11-25 06:48] LABS: AUTOMATED NEUTROPHIL # 3.8 TH/MM3 (1.8-7.7); BASOPHIL # 0.1 TH/MM3 (0-0.2); BASOPHIL % 1.3 % (0.0-2.0); EOSINOPHIL # 0.2 TH/MM3 (0-0.4); EOSINOPHIL % 2.1 % (0.0-4.0); HEMATOCRIT 37.9 % (35.0-46.0); HEMOGLOBIN 12.5 GM/DL (11.6-15.3); LYMPHOCYTE # 2.7 TH/MM3 (1.0-4.8); MEAN CORPUSCULAR HEMOGLOBIN 28.4 PG (27.0-34.0); MEAN PLATELET VOLUME 7.7 FL (7.0-11.0); MONO % 6.4 % (0.0-8.0); MONOCYTE # 0.5 TH/MM3 (0-0.9); NEUT % 53.2 % (16.0-70.0); PLATELET COUNT 267 TH/MM3 (150-450); RED BLOOD COUNT 4.41 MIL/MM3 (4.00-5.30); RED CELL DISTRIBUTION WIDTH 12.8 % (11.6-17.2); WHITE BLOOD COUNT 7.3 TH/MM3 (4.0-11.0)
[2017-11-25 06:57] LABS: BICARBONATE 28.6 MEQ/L (21.0-32.0); CALCIUM 8.9 MG/DL (8.5-10.1)
[2017-11-25 07:01] LABS: CREATININE 0.49 MG/DL (0.50-1.00)
[2017-11-25 08:00] VITALS: BP 140/88; PULSE 60; RESP 20; TEMP 97.9; O2SAT 99
[2017-11-25] MEDS ORDERED: DOCUSATE SODIUM 50 MG/SENNA 8.6 MG TAB PO SCH (09:00)
[2017-11-25] MEDS ORDERED: SODIUM CHLORIDE 0.9% FLUSH 10 ML FLUSH IV FLUSH SCH (09:00)
--- NOTE | 2017-11-25 10:24 | PD.CONS ---
HPI History of Present Illness This is a 52 year old female who was admitted to the hospital on 11/24/2017 with symptoms of nausea, vomiting, and food getting stuck in her esophagus. Patient had a gastric sleeve procedure done on 11/09/2017 as well as a hiatal hernia repair and states that since the surgery she has been struggling with her pur ed foods getting stuck. She states that when she tries to swallow water behind the food she immediately vomits it back up. She followed up with her current surgeon and he recommended that she come to the hospital for further evaluation. Patient notes that she was having trouble swallowing regular food with special attention to meats even before her surgery. Patient states stool is liquid green and denies any current constipation. Gastroenterology was consulted to evaluate swallowing. Currently patient has IV fluids for hydration at 100 cc an hour; Hemoglobin 12.5 without any obvious bleeding. No family history of colon cancer. (Reanna Wilks) PFSH Past Medical History Dysphasia Arthritis Anxiety Nausea vomiting Hypothyroid Past Surgical History Recent gastric sleeve done 11/09 Per the record Partial hysterectomy Bladder mesh Cervical disc surgery TMJ surgery Skin cancer Tonsillectomy (Reanna Wilks) Coded Allergies: promethazine (Unverified Allergy, Severe, CARDIAC ARREST, 11/24/17) WITH IV PHENERGAN ONLY Family History No family history of colon cancer Social History No tobacco no illicit drugs Occasional social alcohol but states more around special occasions (Reanna Wilks) Review of Systems Gastrointestinal: COMPLAINS OF: Nausea, Vomiting, Difficulty Swallowing ( Reanna Wilks) GI Exam Vitals I&O Vital Signs Date Time Temp Pulse Resp B/P (MAP) Pulse Ox O2 Delivery O2 Flow Rate FiO2 11/25/17 08:00 97.9 60 20 140/88 (105) 99 11/25/17 04:00 98.7 69 20 109/68 (82) 96 11/25/17 00:00 98.6 76 20 138/75 (96) 96 11/24/17 23:00 78 16 125/85 (98) 98 Room Air 11/24/17 19:57 98.9 98 16 122/76 (91) 95 I/O 11/24/17 11/24/17 11/24/17 11/25/17 11/25/17/4/18 07:00 15:00 23:00 07:00 15:00 23:00 Intake Total 220 ml 120 ml Balance 220 ml 120 ml Intake Oral 120 ml 120 ml IV Total 100 ml # Voids 1 # Bowel Movements 0 Laboratory Test 11/24/17 20:30 11/25/17 04:56 White Blood Count 7.0 TH/MM3 7.3 TH/MM3 Red Blood Count 4.81 MIL/MM3 4.41 MIL/MM3 Hemoglobin 13.3 GM/DL 12.5 GM/DL Hematocrit 40.6 % 37.9 % Mean Corpuscular Volume 84.3 FL 86.0 FL Mean Corpuscular Hemoglobin 27.6 PG 28.4 PG Mean Corpuscular Hemoglobin Concent 32.7 % 33.0 % Red Cell Distribution Width 12.4 % 12.8 % Platelet Count 328 TH/MM3 267 TH/MM3 Mean Platelet Volume 7.1 FL 7.7 FL Neutrophils (%) (Auto) 59.2 % 53.2 % Lymphocytes (%) (Auto) 29.6 % 37.0 % Monocytes (%) (Auto) 6.7 % 6.4 % Eosinophils (%) (Auto) 0.6 % 2.1 % Basophils (%) (Auto) 3.9 % 1.3 % Neutrophils # (Auto) 4.1 TH/MM3 3.8 TH/MM3 Lymphocytes # (Auto) 2.1 TH/MM3 2.7 TH/MM3 Monocytes # (Auto) 0.5 TH/MM3 0.5 TH/MM3 Eosinophils # (Auto) 0.0 TH/MM3 0.2 TH/MM3 Basophils # (Auto) 0.3 TH/MM3 0.1 TH/MM3 CBC Comment DIFF FINAL DIFF FINAL Differential Comment Prothrombin Time 11.8 SEC Prothromb Time International Ratio 1.2 RATIO Activated Partial Thromboplast Time 27.1 SEC Blood Urea Nitrogen 11 MG/DL 11 MG/DL Creatinine 0.56 MG/DL 0.49 MG/DL Random Glucose 104 MG/DL 85 MG/DL Total Protein 8.3 GM/DL Albumin 3.8 GM/DL Calcium Level 9.6 MG/DL 8.9 MG/DL Alkaline Phosphatase 78 U/L Aspartate Amino Transf (AST/SGOT) 15 U/L Alanine Aminotransferase (ALT/SGPT) 27 U/L Total Bilirubin 0.3 MG/DL Sodium Level 139 MEQ/L 142 MEQ/L Potassium Level 3.2 MEQ/L 3.6 MEQ/L Chloride Level 106 MEQ/L 108 MEQ/L Carbon Dioxide Level 26.6 MEQ/L 28.6 MEQ/L Anion Gap 6 MEQ/L 5 MEQ/L Estimat Glomerular Filtration Rate 114 ML/MIN 133 ML/MIN Lipase 123 U/L Physical Examination HEENT: normocephalic; atraumatic; NECK: Neck is supple CHEST: No shortness of breath at rest no obvious rhonchi lungs are essentially clear CARDIAC: Regular rate and rhythm, heart sounds distant but does have some possible soft murmur grade 2/6 ABDOMEN: Soft, round,, mild tenderness around suture line, bowel sounds are present in all four quadrants. EXTREMITIES: No clubbing, cyanosis, or edema. SKIN: Normal; no rash; no jaundice. SHELL SORTER: No focal deficits; alert and oriented times three. (Reanna Wilks) Assessment and Plan Assessment: (1) Dysphagia ICD Codes: R13.10 - Dysphagia, unspecified Status: Acute Plan 52-year-old female who came into the hospital with problems swallowing pured food as well as some nausea and vomiting when she attempts to drink liquids behind the food to flush it. Patient notes no initial bowel movements on admission but now has had a liquid green stool. Patient also notes even before her gastric sleeve surgery which was performed on 11/09/2017 that she had problems with dysphasia. Patient has some superficial generalized abdominal discomfort secondary to her stitches but otherwise no abdominal pain to light palpation. No obvious bleeding noted, GI has been called to evaluate swallow for any strictures and possible gastric outlet obstruction. Plan Clear liquids for now Consider modified barium swallow study today, probable this p.m., maintain n.p.o. if necessary for test Bowel regimen as needed Anti-emetics PPI IV Once swallow was evaluated further recommendations to follow Patient was seen per myself and Dr. Darden, note was written on his behalf (Reanna Wilks) Plan Patient was seen and examined, agree with above note, will do swallow eval, most likely patient need to be on soft diet or clear liquid until she see her surgeon on , I prefer not to do any procedure at least for 4 weeks post surgeries because of risk of injury to the anastomosis (Jeanine Darden MD) Problem Qualifiers (1) Dysphagia: Qualified Codes: R13.10 - Dysphagia, unspecified Reanna Wilks November 25, 2017 10:24 Jeanine Darden MD November 25, 2017 11:14
[2017-11-25 11:50] VITALS: BP 132/77; PULSE 70; RESP 16; TEMP 97.3; O2SAT 98
[2017-11-25] MEDS ORDERED: DIATRIZOATE MEGLUM/DIATRIZOATE SOD 120 ML BTL (for RAD DIAG) PO ONE (13:15)
--- NOTE | 2017-11-25 13:27 | RADRPT ---
EXAM DATE/TIME: 11/25/2017 11:09 [facility] COMPARISON: No previous studies available for comparison. INDICATIONS : Difficulty swallowing pureed foods, post gastric sleeve surgery 2 weeks ago. FLUORO TIME: 2.5 minutes IMAGE COUNT: 13 CONTRAST: 1. Gastrografin (Diatrizoate Meglumine and Diatrizoate Sodium) MEDICAL HISTORY : Hypertension. Hypothyroidism. SURGICAL HISTORY : Hysterectomy. Fusion, cervical. hiatal hernia repair, gastric sleeve, esophageal dilatation ENCOUNTER: Initial ACUITY: 4 - 6 days PAIN SCORE: 0/10 LOCATION: esophagus FINDINGS: A Gastrografin swallow was performed. Gastrografin flows freely through the esophagus, gastric sleeve and into the duodenum. No extravasation is noted to suggest leak. Moderate gastroesophageal reflux i s noted. A barium tablet passes freely into the gastric fundus. CONCLUSION: 1. No extravasation to suggest leak status post gastric sleeve surgery. 2. Moderate gastroesophageal reflux. Myles Luz MD on November 25, 2017 at 13:23 Board Certified Radiologist. This report was verified electronically.
--- NOTE | 2017-11-25 13:41 | HHI.HP ---
[facility] Tyree Serrano MD Admission Diagnosis Dysphasia, hypokalemia Diagnoses: Chief Complaint: Swallowing Travel History International Travel<30 Days: No Contact w/Intl Traveler <30 Da: No Traveled to Known Affected Are: No History of Present Illness This patient is a 52-year-old female with history of hypertension and elevated BMI who recently had a gastric sleeve placed 11/09/17. Patient reports the last 3 days she has had difficulty swallowing and she feels that the food comes back up and regurgitation. She says that she has no other trouble with severe vomiting or abdominal pain. She had been feeling otherwise well post procedure. She comes in with these symptoms and the emergency room doctor did call her doctor in [place] who recommended a gastric swallowing study with possible endoscopy at some point. Patient now has had her swallowing study and there is no evidence of extravasation and the patient is doing well on her current liquid diet. Review of Systems Constitutional: DENIES: Diaphoretic episodes, Fatigue, Fever, Weight gain, Weight loss, Chills, Dizziness, Change in appetite, Night Sweats Endocrine: DENIES: Abnorml menstrual pattern, Heat/cold intolerance, Polydipsia , Polyuria, Polyphagia Eyes: DENIES: Blurred vision, Diplopia, Eye inflammation, Eye pain, Vision loss , Photosensitivity, Double Vision Ears, nose, mouth, throat: DENIES: Tinnitus, Hearing loss, Vertigo, Nasal discharge, Oral lesions, Throat pain, Hoarseness, Ear Pain, Running Nose, Epistaxis, Sinus Pain, Toothache, Odynophagia Respiratory: DENIES: Apneas, Cough, Snoring, Wheezing, Hemoptysis, Sputum production, Shortness of breath Cardiovascular: DENIES: Chest pain, Palpitations, Syncope, Dyspnea on Exertion , PND, Lower Extremity Edema, Orthopnea, Claudication Gastrointestinal: COMPLAINS OF: Difficulty Swallowing, DENIES: Abdominal pain, Black stools, Bloody stools, Constipation, Diarrhea, Nausea, Vomiting, Anorexia Genitourinary: DENIES: Abnormal vaginal bleeding, Dysmenorrhea, Dyspareunia, Sexual dysfunction, Urinary frequency, Urinary incontinence, Urgency, Hematuria , Dysuria, Nocturia, Vaginal discharge Musculoskeletal: DENIES: Joint pain, Muscle aches, Stiffness, Joint Swelling, Back pain, Neck pain Integumentary: DENIES: Abnormal pigmentation, Pruritus, Rash, Nail changes, Breast masses, Breast skin changes, Nipple discharge Hematologic/lymphatic: DENIES: Bruising, Lymphadenopathy Immunologic/allergic: DENIES: Eczema, Urticaria Neurologic: DENIES: Abnormal gait, Headache, Localized weakness, Paresthesias, Seizures, Speech Problems, Tremor, Poor Balance Psychiatric: DENIES: Anxiety, Confusion, Mood changes, Depression, Hallucinations, Agitation, Suicidal Ideation, Homicidal Ideation, Delusions Except as stated in HPI: all other systems reviewed are Neg Past Family Social History Past Medical History Dysphasia Arthritis Anxiety Nausea vomiting Hypothyroid Past Surgical History Recent gastric sleeve done 11/09 Per the record Partial hysterectomy Bladder mesh Cervical disc surgery TMJ surgery Skin cancer Tonsillectomy Reported Medications Reviewed in the EMR, nothing new Allergies: Coded Allergies: promethazine (Unverified Allergy, Severe, CARDIAC ARREST, 11/24/17) WITH IV PHENERGAN ONLY Active Ordered Medications Reviewed in the EMR Family History No family history of colon cancer Social History No tobacco no illicit drugs Occasional social alcohol but states more around special occasions Physical Exam Vital Signs Vital Signs Date Time Temp Pulse Resp B/P (MAP) Pulse Ox O2 Delivery O2 Flow Rate FiO2 11/25/17 11:50 97.3 70 16 132/77 (95) 98 11/25/17 08:00 97.9 60 20 140/88 (105) 99 11/25/17 04:00 98.7 69 20 109/68 (82) 96 11/25/17 00:00 98.6 76 20 138/75 (96) 96 11/24/17 23:00 78 16 125/85 (98) 98 Room Air 11/24/17 19:57 98.9 98 16 122/76 (91) 95 Physical Exam GENERAL: This is a well-nourished, well-developed patient, in no apparent distress. SKIN: No rashes, ecchymoses or lesions. Cool and dry. HEAD: Atraumatic. Normocephalic. No temporal or scalp tenderness. EYES: Pupils equal round and reactive. Extraocular motions intact. No scleral icterus. No injection or drainage. ENT: Nose without bleeding, purulent drainage or septal hematoma. Throat without erythema, tonsillar hypertrophy or exudate. Uvula midline. Airway patent. NECK: Trachea midline. No JVD or lymphadenopathy. Supple, nontender, no meningeal signs. CARDIOVASCULAR: Regular rate and rhythm without murmurs, gallops, or rubs. RESPIRATORY: Clear to auscultation. Breath sounds equal bilaterally. No wheezes , rales, or rhonchi. GASTROINTESTINAL: Abdomen soft, non-tender, nondistended. No hepato-splenomegaly , or palpable masses. No guarding. MUSCULOSKELETAL: Extremities without clubbing, cyanosis, or edema. No joint tenderness, effusion, or edema noted. No calf tenderness. Negative Homans sign bilaterally. NEUROLOGICAL: Awake and alert. Cranial nerves II through XII intact. Motor and sensory grossly within normal limits. Five out of 5 muscle strength in all muscle groups. Normal speech. Laboratory Laboratory Tests Test 11/24/17 20:30 11/25/17 04:56 White Blood Count 7.0 7.3 Red Blood Count 4.81 4.41 Hemoglobin 13.3 12.5 Hematocrit 40.6 37.9 Mean Corpuscular Volume 84.3 86.0 Mean Corpuscular Hemoglobin 27.6 28.4 Mean Corpuscular Hemoglobin Concent 32.7 33.0 Red Cell Distribution Width 12.4 12.8 Platelet Count 328 267 Mean Platelet Volume 7.1 7.7 Neutrophils (%) (Auto) 59.2 53.2 Lymphocytes (%) (Auto) 29.6 37.0 Monocytes (%) (Auto) 6.7 6.4 Eosinophils (%) (Auto) 0.6 2.1 Basophils (%) (Auto) 3.9 1.3 Neutrophils # (Auto) 4.1 3.8 Lymphocytes # (Auto) 2.1 2.7 Monocytes # (Auto) 0.5 0.5 Eosinophils # (Auto) 0.0 0.2 Basophils # (Auto) 0.3 0.1 CBC Comment DIFF FINAL DIFF FINAL Differential Comment Prothrombin Time 11.8 Prothromb Time International Ratio 1.2 Activated Partial Thromboplast Time 27.1 Blood Urea Nitrogen 11 11 Creatinine 0.56 0.49 Random Glucose 104 85 Total Protein 8.3 Albumin 3.8 Calcium Level 9.6 8.9 Alkaline Phosphatase 78 Aspartate Amino Transf (AST/SGOT) 15 Alanine Aminotransferase (ALT/SGPT) 27 Total Bilirubin 0.3 Sodium Level 139 142 Potassium Level 3.2 3.6 Chloride Level 106 108 Carbon Dioxide Level 26.6 28.6 Anion Gap 6 5 Estimat Glomerular Filtration Rate 114 133 Lipase 123 Result Diagram: 11/25/17 0456 11/25/17 0456 Imaging Last Impressions Upper GI/Barium Swallow X-Ray 11/25/17 0000 Signed Impressions: Service Date/Time: Saturday, November 25, 2017 11:09 - CONCLUSION: 1. No extravasation to suggest leak status post gastric sleeve surgery. 2. Moderate gastroesophageal reflux. Myles Luz MD Assessment and Plan Problem List: (1) Dysphagia ICD Code: R13.10 - Dysphagia, unspecified Status: Acute Plan: Patient seen and evaluated in follow-up for dysphasia. Overall stable. Able to tolerate liquids. GI consult appreciated. With known history of esophageal stricture in the past and hiatal hernia. For barium swallow today. We will follow-up results and follow-up with her primary herbicide sprayer Dr. graham in [place] Assessment and Plan Discharge home Activity unrestricted Diet liquids and advance as tolerated Code Status Full code Problem Qualifiers (1) Dysphagia: Qualified Codes: R13.10 - Dysphagia, unspecified Melissa Howe MD November 25, 2017 13:41
--- NOTE | 2017-11-25 13:42 | HHI.DCPOC ---
Discharge Care Plan Diagnosis: (1) Dysphagia Goals to Promote Your Health * To prevent worsening of your condition and complications * To maintain your health at the optimal level Directions to Meet Your Goals Take your medications as prescribed Follow your dietary instruction Follow activity as directed Keep your appointments as scheduled Take your immunizations and boosters as scheduled If your symptoms worsen call your PCP, if no PCP go to Urgent Care Center or Emergency Room Smoking is Dangerous to Your Health. Avoid second hand smoke Call the 24-hour hour crisis hotline for domestic abuse at Melissa Howe MD November 25, 2017 13:42
== END 2017-11-25 15:02 | disposition home or self-care (01) ==
LOC: PHED 19:34 → PHEDA 21:24 → PH3A 23:48
PROVIDERS: ADMIT Hospitalist; ATTEND Hospitalist
DX: R13.10 Dysphagia, unspecified (principal); E87.6 Hypokalemia; R11.2 Nausea with vomiting, unspecified; E03.9 Hypothyroidism, unspecified; Z98.84 Bariatric surgery status; I10 Essential (primary) hypertension; K21.9 Gastro-esophageal reflux disease without esophagitis; M19.90 Unspecified osteoarthritis, unspecified site; F41.9 Anxiety disorder, unspecified
CPT/HCPCS: 74220; 80048; 80053; 83690; 85025; 85610; 85730; 96361; 96365; 96366; 99285; G0378; J3480; J7030; Q9963

== ENCOUNTER 2017-12-09 18:10 | Emergency (ER) | END 2017-12-09 19:40 | disposition left against medical advice (07) | DX: R11.10 Vomiting, unspecified (principal) ==

== ENCOUNTER 2018-07-11 05:55 | Observation (INO) ==
[2018-07-11] MEDS ORDERED: Vancomycin Inj 1,000 MG in Sodium Chlor 0.9% Inj 250 ML IV.SIG PRN (06:17)
[2018-07-11] MEDS ORDERED: Metoprolol Tartrate 25 MG Tablet PO ONE (06:18)
[2018-07-11] MEDS ORDERED: Chlorhexidine Gluconate 2% 1 Pack (2 Cloths) TOPICAL ONE (06:18)
[2018-07-11] MEDS ORDERED: Propofol Inj 500 MG/50 ML Vial ONE ×4 (06:58→10:49)
[2018-07-11] MEDS ORDERED: Sodium Chlor 0.9% Inj 500 ML IV.SIG SCH (07:00)
[2018-07-11] MEDS ORDERED: Artificial Tears Opth Oint 3.5 GM Tube ONE (07:21)
[2018-07-11] MEDS ORDERED: Gelatin Size 100 Topical Foam ONE (07:24)
[2018-07-11] MEDS ORDERED: ceFAZolin 1 GM Premix Inj 2 GM/100 ML PIGGYBACK IV.SIG ONE (07:24)
[2018-07-11] MEDS ORDERED: Thrombin Topical Soln 5,000 UNIT Vial TOPICAL ONE (07:24)
[2018-07-11 07:44] LABS: Baso % (Auto) 0.8 % (0.0-2.0); Eos # (Auto) 0.1 th/mm3 (0.0-0.4); Eos % (Auto) 1.6 % (0.0-4.0); Hematocrit 40.8 % (35.0-46.0); Hemoglobin 13.9 gm/dL (11.6-15.3); Lymph # (Auto) 1.7 th/mm3 (1.0-4.8); Lymph % (Auto) 30.5 % (9.0-44.0); Mean Corpuscular HGB Conc 34.1 % (32.0-36.0); Mean Corpuscular Hemoglobin 29.8 pg (27.0-34.0); Mean Corpuscular Volume 87.4 fL (80.0-100.0); Mean Platelet Volume 7.3 fL (7.0-11.0); Mono # (Auto) 0.4 th/mm3 (0.0-0.9); Mono % (Auto) 6.5 % (0.0-8.0); Neut # (Auto) 3.5 th/mm3 (1.8-7.7); Neut % (Auto) 60.6 % (16.0-70.0); Platelet Count 223 th/mm3 (150-450); Red Blood Count 4.67 mil/mm3 (4.00-5.30); Red Cell Distribution Width 14.1 % (11.6-17.2); White Blood Count 5.7 th/mm3 (4.0-11.0)
[2018-07-11] MEDS: Sod Chloride 0.9% Inj 1,000 ML IV.SIG SCH (07:55)
[2018-07-11 08:04] LABS: Bacteria,Urine Many /hpf; Bilirubin,Urine Negative (Negative); Clarity,Urine Cloudy (Clear); Glucose,Urine (UA) Negative (Negative); Leukocyte Esterase,Urine Large (Negative); Mucus,Urine Many /lpf (Occasional); Nitrite,Urine Negative (Negative); Specific Gravity,Urine 1.025 (1.002-1.035); Squamous Epithelial Cell,Urine 47 /hpf (0-5)
[2018-07-11 08:05] LABS: Amorphous Sediment,Urine Few /hpf; Color,Urine Yellow (Yellw/Straw)
[2018-07-11] MEDS ORDERED: Bisacodyl 10 MG Supp RECTAL PRN (10:00)
[2018-07-11] MEDS ORDERED: Morphine Sulfate Inj 2 MG/ML Vial IV.PUSH PRN (10:00)
--- NOTE | 2018-07-11 11:32 | P.OP ---
Preoperative Diagnosis: Cervical disk herniation with stenosis Postoperative Diagnosis: Cervical disk herniation with stenosis Date of procedure: 07/11/18 Procedure: C4-5 anterior cervical discectomy, interbody arthrodesis using PEEK cage filled with autologous bone graft, Simplicity plate and screws Anesthesia: LOGAN Surgeon: Eliu Saravia MD Clerk Guide: Radha June Pathology: none sent Operation and Findings: INDICATIONS FOR THE PROCEDURE Ms Schwarz is a 52 year old female with history of C5-6 anterior cervical discectomy and fusion who presented a with intractable neck pain and C5 radiculopathy. She was found to have severe stenosis at C4-5 with compression of the spinal cord. He failed nonoperative treatment. A surgical decompression and arthrodesis were indicated. The utac-vi-lahp details of the procedure, indications, alternatives, risks and potential complications were fully discussed with the patient. The patient fully understood. All The questions were answered. No guarantees were given. The patient voiced requesting the procedure and provided informed consents. The patient was offered the alternative of delaying the procedure and continuing with nonsurgical management. DETAILS OF THE SURGICAL PROCEDURE After the induction of general anesthesia, endotracheal intubation was performed. A Sutherland catheter, bilateral NATALIYA hose, and sequential compression devices were placed and kept throughout the procedure. The patient was positioned supine on a Juan José table with the head over a gel doughnut. All pressure points were carefully padded with egg crate mattress. The eyes were tapped shut after ointment was applied by the anesthesiologist to prevent corneal abrasion. A Edna hugger was placed over the exposed lower body to maintain control of the core body temperature. The electrophysiological team placed the needles and electrodes in their proper location and baseline SSEP's and motor evoked potentials were registered. The anterior cervical region was prepped and draped in the usual sterile fashion. A localizing x-ray was performed with a C-arm. The surgical procedure was performed in several steps as follow: SURGICAL APPROACH A skin incision was made along the middle cervical crease with a #10 blade. The dissection was carried out through the platysma exposing the sternocleidomastoid muscle. The cervical spine was approached following the fascial layers of the neck just medial to the anterior border of the sternocleidomastoid and carotid sheath by a combination of sharp and dull dissection. The omohyoid muscle was identified and carefully dissected laterally and the deep cervical fascia was carefully opened. The longus colli muscles were retracted to each side of the midline. The plate at C5-C6 was exposed. Initially the locking plates were sequentially unlocked, and then the screws were removed. The plate was dissected from the surrounding tissues and carefully elevated with a ligament dissector. A marker was placed at the disc space C4-5 and a cross-table lateral x-ray performed with a C-arm. SURGICAL DECOMPRESSION In order to decompress the anterior surface of the spinal cord it was necessary to preform a microsurgical resection of the disk. At this point in the procedure the operating microscope was draped in the usual sterile fashion and brought to the field. The rest of the surgical procedure was performed using microdissection technique with the exception of the closure. Under the operative microscopic, an anterior osteophytic spur was carefully removed using the Leksell, and a self-retaining retractor was placed underneath the longus colli muscle. The annulus at C4-5 was incised with a #15 blade and microdiscectomy was then carefully carried out using angled curets and pituitary forceps. The patient had a posterior osteophitic/disk herniation complex which was producing mass affect on the anterior surface of the dural sac and spinal cord compression. This was carefully drilled with a TPS drill and resected with a think foot plate 2mm kerrison under high magnification. The posterior longitudinal ligament was then elevated with an angled curet and incised with a 15 bladed knife. A careful resection of the posterior longitudinal ligament was carried out using a thin footplate 2 mm Kerrison. The decompression was then carried out laterally, and a bilateral foraminotomy was performed with a 2mm thin foot Kerrison. Then the vertebral bodies above and below the disk space were undercut using a 2 mm thin foot Kerrison. The epidural space was the systematically assessed with a nerve hook in search for disk fragments. An excellent decompression was achieved in both, the dural sac and bilateral exiting nerve roots. The incision was then irrigated with a large amount of antibiotic solution INTERBODY ARTHRODHESIS In order to avoid collapse of the disk space which would result in bilateral foraminal stenosis, and to increase the chances of a successful fusion, it was necessary to place an interbody cage filled with autologous bone. At this point of the procedure, the superior and inferior endplates were then evenly decorticated with a TPS drill. The use of a drill in combination with a curette allowed me to systematically remove the cartilaginous endplates, exposing healthy bone for the interbody arthrodesis. fourteen millimeters distraction pins were then placed at the vertebral bodies adjacent to the disk space, and gentle distraction was applied. The size of the interbody cage was then assessed using different size spacers, and a rasp was used to ensure no residual cartilage. A PEEK cage of the appropriate size was selected, and the interbody arthrodesis was then preformed by carefully impacting a PEEK cage filled with autologous bone graft to the disc space C4-5. An excellent position of the cage was achieved. This was was confirmed anatomically by feelling the space posterior to the implant and distance to the anterior surface of the dural sac. Radiological confirmation of the position was performed with a cross lateral xray performed with the C-arm. INTERNAL INSTRUMENTAL FIXATION Once that the interbody device was in an appropriate position, it was necessary to stabilize the spine with anterior instrumentation. Anterior instrumentation has demonstrated to increase the rate of fusion, accelerate the patient's recovery, and decrease the rate of failed interbody grafts. At this point of the procedure, the distance between the vertebral bodies was carefully measures, and a Simplicity plate was brought to the field and presented in front of the C4 and C5 vertebral bodies. Conveyor Belt Installer holes were then drilled using the TPS drill, and the plate was then secured to the spine using self-drilling, self-tapping screws. Initially, the inferior right screw was inserted, followed by placement of the contra lateral upper screw. The remaining screws were sequentially placed in a contra-lateral fashion. A proper purchase was achieved with all screws and the position of the cage, plate and screws, and alignment of the spine was assessed anatomically by direct visualization, and radiologically by performing a cross lateral xray of the cervical spine with the C-arm. CLOSURE The incision was irrigated with several liters of antibiotic solution. Hemostasis was achieved with a bipolar. The screws were locked to prevent backing out. A 7 mm Juan José-Trevizo drain was left in the prevertebral space and externalized through a separate stab incision. The incision was then closed in layers. 3-0 Vicryl with interrupted sutures was used to close the platysma and subcutaneous tissue. The skin was closed with 4-0 running subcuticular Vicryl and Dermabond was applied to the skin. The drain was secured with a 3-0 nylon. At the end of the procedure the sponge, needle and instrument counts were all correct. The estimated blood loss was less than 50-55 cc. No blood transfusion was given. No intraoperative complications occurred. The patient received prophylactic antibiotics. The patient was then extubated and transferred to the recovery room in stable condition.
[2018-07-11] MEDS ORDERED: fentaNYL Citrate Inj 100 MCG/2 ML Ampul ONE ×2 (11:59)
--- NOTE | 2018-07-11 12:32 | XR ---
EXAM DATE: 07/11/2018 12:26 PM EST AGE/SEX: 52 years / Female INDICATIONS: Hardware placement C4-5 CLINICAL DATA: This is the patient's initial encounter. Patient reports that signs and symptoms have been present for 1 day and indicates a pain score of Nonresponsive. MEDICAL/SURGICAL HISTORY: None. None. COMPARISON: [facility], CT CERVICAL SPINE W/O CONTRAST, 10/22/2017. . FINDINGS: Anterior cervical fusion hardware is noted at C4 and C5. Disc implants are also noted at C4-5 and C5- 6. CONCLUSION: Status post anterior cervical fusion at C4 and C5 with disc implants at C4-5 and C5-6. Electronically signed by: Myles Luz MD Board Certified Radiologist 07/11/2018 12:30 PM EST
[2018-07-11] MEDS ORDERED: *morphine SULFATE 4 MG/ML PERIprocedure ONLY ONE ×2 (12:35→12:55)
[2018-07-11] MEDS: ceFAZolin 2 GM Premix Inj 2 GM/50 ML PIGGYBACK IV.SIG SCH ×2 (15:17→22:28)
[2018-07-11] MEDS: Sod Chloride 0.9% Inj 1,000 ML IV.CONT SCH ×2 (17:55→22:28)
[2018-07-11] MEDS: Chlorhexidine Gluconate 2% 1 Pack (2 Cloths) TOPICAL SCH (17:55)
[2018-07-11] MEDS: Senna/Docusate Sodium 8.6/50 MG Tablet PO SCH (22:26)
[2018-07-12] MEDS: Sod Chloride 0.9% Inj 1,000 ML IV.CONT SCH ×2 (05:02→16:47)
[2018-07-12] MEDS: Sod Chloride 0.9% Inj 1,000 ML IV.SIG SCH (06:27)
[2018-07-12] MEDS: ceFAZolin 2 GM Premix Inj 2 GM/50 ML PIGGYBACK IV.SIG SCH (06:27)
[2018-07-12] MEDS: Senna/Docusate Sodium 8.6/50 MG Tablet PO SCH ×2 (08:57→21:25)
[2018-07-12] MEDS: Chlorhexidine Gluconate 2% 1 Pack (2 Cloths) TOPICAL SCH (08:58)
[2018-07-12] MEDS ORDERED: Phenol 1.4% 180 ML Spray Bottle OROPHARYNG PRN (09:13)
[2018-07-12] MEDS ORDERED: Butalbital/APAP/Caff 50/325/40 MG Tablet PO ONE (09:35)
--- NOTE | 2018-07-12 14:48 | P.DS ---
Date of admission: 07/11/18 13:46 Primary care physician: Tyree Serrano MD Brief History from admission: Ms Schwarz is a 52 year old female with history of C5-6 anterior cervical discectomy and fusion who presented a with intractable neck pain and C5 radiculopathy. She was found to have severe stenosis at C4-5 with compression of the spinal cord. He failed nonoperative treatment. A surgical decompression and arthrodesis were indicated. DS: Medications - Discharge Medications Prescriptions: hydrocodone-acetaminophen 1 tab PO Q4-6H PRN 7 Days #30 tab PRN Reason: Pain Scale 1 To 5 DS: Summary Hospital Course: Ms. Schwarz underwent a C4-5 anterior cervical discectomy, interbody arthrodesis using PEEK cage filled with autologous bone graft, Simplicity plate and screws for Cervical disk herniation with stenosis on 07/11/18. Her surgery went well without complications. She developed throat pain and phlegm causing some difficulty breathing. Dose of decadron helped. - Time Spent with Patient Total time spent providing and/or coordinating discharge services: Less than 30 minutes - Quality: VTE Deep Vein Thrombosis/Pulmonary Embolism Present on Admission: No Exam Vital signs: Vital Signs 07/11/18 16:00 07/11/18 20:00 07/12/18 00:00 Temperature 97.6 F 98.1 F 98.2 F Pulse Rate 90 90 80 Respiratory Rate 20 16 16 Blood Pressure 122/61 139/71 115/74 Pulse Oximetry 95 99 96 07/12/18 04:00 07/12/18 08:00 07/12/18 12:00 Temperature 97.6 F 97.5 F L 98.0 F Pulse Rate 85 74 97 H Respiratory Rate 16 20 16 Blood Pressure 116/71 125/81 125/74 Pulse Oximetry 99 99 97 Intake & Output 07/11/18 07/12/18 07/12/18 18:59 06:59 18:59 Intake Total 1050 / 1050 2049 50 / 50 Output Total 50 / 50 40 / 40 Balance 1000 / 1000 2009 50 / 50 Weight 62.8 kg 68.6 kg Intake: IV 50 / 50 2049 50 / 50 NS Inj 1,000 ML @ 100 mls/hr IV 1999 .CONT .Q10H [facility] Rx#:[id number] Ancef 2 GM Premix Inj 2 gm In 50 / 50 50 / 50 50 / 50 50 ml @ 100 mls/hr IV.SIG Q8H [facility] Rx#:[id number] Anesthesia Amount 1000 / 1000 Output: Estimated Blood Loss 50 / 50 Wound Drainage 40 / 40 # 1 Anterior Neck Aldo 40 / 40 Other: # Voids 1 1 Weight On Admission 62.8 kg Results Procedures completed during hospitalization: C4-5 anterior cervical discectomy, interbody arthrodesis using PEEK cage filled with autologous bone graft, Simplicity plate and screws Labs on day of discharge: Preliminary micro results at discharge 07/11/18 07:30 Urine Culture - Preliminary Clean Catch Urine Immature growth - reincubate - Impressions ITS Impressions Cervical Spine X-Ray 07/11/18 00:00 CONCLUSION: Status post anterior cervical fusion at C4 and C5 with disc implants at C4-5 and C5-6. Discharge Plan - Discharge Disposition Patient Disposition: 01 Discharge Home - Discharge Condition Condition: Stable - Discharge Order Discharge Orders: Discharge Order (Routine); Ordered 07/12/18 Ordered By: Magalie De La Rosa - Physicians Team Primary Care Provider: Tyree Serrano Attending Provider: Eliu Saravia Other Providers: Yobany Haywood - Rxs /Orders / Referrals /Forms Prescriptions: New hydrocodone-acetaminophen 10-325 mg Tablet 1 tab PO Q4-6H PRN (Reason: Pain Scale 1 To 5) 7 Days Qty: 30 RF: 0 Continue levothyroxine 200 mcg Tablet 200 mcg PO DAILY rosuvastatin 40 mg Tablet 40 mg PO DAILY Referrals: Tyree Serrano MD [Primary Care Provider] - See Instructions - Discharge Instructions Patient Printed Instructions: Hydrocodone/Acetaminophen (By mouth), Laminectomy (DC)
[2018-07-13 00:38] VITALS: O2SAT 99
[2018-07-13] MEDS: Sod Chloride 0.9% Inj 1,000 ML IV.CONT SCH ×2 (02:04→12:08)
[2018-07-13] MEDS: Sod Chloride 0.9% Inj 1,000 ML IV.SIG SCH (06:01)
[2018-07-13] MEDS: Chlorhexidine Gluconate 2% 1 Pack (2 Cloths) TOPICAL SCH (08:20)
[2018-07-13] MEDS: Senna/Docusate Sodium 8.6/50 MG Tablet PO SCH (08:24)
[2018-07-13 09:02] VITALS: BP 145/76; PULSE 71; RESP 18; TEMP 97.7
== END 2018-07-13 14:38 | disposition home or self-care (01) ==
LOC: HSDI 05:55 → HSDC 05:55 → N05 14:12
PROVIDERS: ADMIT Neurological Surgery; ATTEND Neurological Surgery